=== PATIENT | female | born 1990 | race Two or more races ===

== ENCOUNTER 2020-12-22 20:24 | Emergency (ER) | payer OTHER ==
[~2020-12-22] VITALS: Ht 152.4 cm; Wt 68.0 kg
== END 2020-12-22 22:35 | disposition home or self-care (01) ==
LOC: ER 20:24
DX: S81.021A Laceration with foreign body, right knee, initial encounter (principal); W05.1XXA Fall from non-moving nonmotorized scooter, initial encounter; Y93.I9 Activity, other involving external motion; Y92.414 Local residential or business street as the place of occurrence of the external cause; Y99.8 Other external cause status